=== PATIENT | female | born 1945 | race Caucasian/White ===

== ENCOUNTER 2019-02-09 08:13 | Day surgery (SDC) | payer MEDICARE, BC ==
[2019-02-08 16:51] LABS: BASOPHILS % (AUTO) 0.4 % (0-1); EOSINOPHILS # (AUTO) 0.1 X10'3 (0-0.9); EOSINOPHILS % (AUTO) 1.3 % (0-6); HEMATOCRIT 38.2 % (35.0-45.0); HEMOGLOBIN 12.7 g/dl (12.0-16.0); LYMPHOCYTES # (AUTO) 2.6 X10'3 (1.1-4.8); LYMPHOCYTES % (AUTO) 25.8 % (21-51); MEAN CORPUSCULAR HEMOGLOBIN 30.1 PG (27.0-31.0); MEAN CORPUSCULAR HGB CONC 33.1 g/dL (33.0-36.5); MEAN CORPUSCULAR VOLUME 90.8 FL (78-98); MEAN PLATELET VOLUME 9.2 FL (7.4-10.4); MONOCYTES # (AUTO) 0.7 X10'3 (0-0.9); MONOCYTES % (AUTO) 6.9 % (2-12); NEUTROPHILS # (AUTO) 6.7 X10'3 (1.8-7.7); NEUTROPHILS % (AUTO) 65.6 % (42-75); PLATELET COUNT 375 X10'3 (140-440); RED BLOOD COUNT 4.21 X10'6 (4.20-5.60); WHITE BLOOD COUNT 10.1 X10'3 (4.5-11.0)
[2019-02-08 17:05] LABS: ALBUMIN 3.1 G/DL (3.4-5.0); ANION GAP 11 (8-16); BLOOD UREA NITROGEN 22 MG/DL (7-18); CALCIUM 8.9 MG/DL (8.5-10.1); CHLORIDE 104 MMOL/L (99-107); CREATININE 1.22 MG/DL (0.40-0.90); GLUCOSE 294 MG/DL (70-104); POTASSIUM 4.6 MMOL/L (3.5-5.1); SODIUM 142 MMOL/L (135-145); TOTAL CARBON DIOXIDE 27.5 MMOL/L (24-32); eGFR 43 ML/MIN
[2019-02-08 18:02] LABS: TOTAL CELLS COUNTED 200
[2019-02-08 18:03] LABS: BASOPHILS % (MANUAL) 0 % (0-1); LYMPHOCYTES % (MANUAL) 28 % (21-51)
[2019-02-08 18:04] LABS: METAMYLEOCYTES% (MANUAL) 0 % (0-0)
[2019-02-08 18:05] LABS: ANISOCYTOSIS 1+; PLATELET ESTIMATE NORMAL
[2019-02-08 18:06] LABS: BURR CELLS 1+
[2019-02-08 18:09] LABS: ACANTHOCYTES 1+; SCHISTOCYTES FEW
[~2019-02-09] VITALS: Ht 157.5 cm; Wt 87.0 kg
[2019-02-09] VITALS (16 sets, daily range): BP systolic 124–142; BP diastolic 71–89
[2019-02-09] MEDS ORDERED: normal saline 1000ml 1,000 ML IV PRN (08:35)
[2019-02-09] MEDS ORDERED: LORazepam 0.5 MG tablet PO ONE (08:35)
[2019-02-09] MEDS ORDERED: atropine 0.1mg/ml 10ml syringe IV ONE (08:35)
[2019-02-09] MEDS ORDERED: amiodarone 150mg/dext, iso-os 100 ML IV ONE (08:35)
[2019-02-09] MEDS ORDERED: diphenhydrAMINE 25mg capsule PO ONE (08:35)
[2019-02-09] MEDS ORDERED: MIDAZolam 1mg/ml 10ml vial IV ONE (08:35)
[2019-02-09] MEDS ORDERED: morphine 10mg/ml inj. IV ONE (08:35)
[2019-02-09] MEDS ORDERED: FERR325T28 PO (09:04)
[2019-02-09] MEDS ORDERED: PANT-47 PO (09:04)
[2019-02-09] MEDS ORDERED: CALC-729 PO (09:04)
[2019-02-09] MEDS ORDERED: ATOR40TA PO (09:04)
[2019-02-09] MEDS ORDERED: CARV3.12 PO (09:04)
[2019-02-09] MEDS ORDERED: INSU100V9 SQ (09:04)
[2019-02-09] MEDS ORDERED: FENO145T38 PO (09:04)
[2019-02-09] MEDS ORDERED: LEVO100T78 PO (09:04)
[2019-02-09] MEDS ORDERED: FLEC100T2 PO (09:04)
[2019-02-09] MEDS ORDERED: APIX5TAB3 PO (09:04)
[2019-02-09] MEDS ORDERED: DIO160T PO (09:04)
[2019-02-09] MEDS ORDERED: CHOL10002 PO (09:04)
[2019-02-09] MEDS ORDERED: CYAN-51 PO (09:04)
[2019-02-09] MEDS ORDERED: MAGN400C PO (09:04)
[2019-02-09] MEDS ORDERED: DIPH25CA83 PO (09:04)
[2019-02-09] MEDS ORDERED: INSU100C10 SQ (09:04)
[2019-02-09] MEDS ORDERED: TETR15DR26 OP (09:05)
== END 2019-02-09 11:40 | disposition home or self-care (01) ==
LOC: SSTAY O 08:13
PROVIDERS: ATTEND Internal Medicine Cardiovascular Disease
DX: I48.19 Other persistent atrial fibrillation (principal); I10 Essential (primary) hypertension; E11.9 Type 2 diabetes mellitus without complications; R55 Syncope and collapse; Z79.899 Other long term (current) drug therapy
CPT/HCPCS: 36415; 80048; 82948; 85025; 85610; 92960; 93005; J0282; J0461; J2250; J2270; J7030; Q0163

== ENCOUNTER 2024-03-29 14:59 | Inpatient (IN) | payer MEDICARE, BC ==
[~2024-03-29] VITALS: Ht 162.6 cm; Wt 102.0 kg
[~2024-03-29 14:59] MED LIST: APIX5TAB3 PO; ATOR40TA PO; CALC-729 PO; CARV3.12 PO; CHOL10002 PO; CYAN-104 PO; DIO160T PO; DIPH25CA83 PO; FENO145T38 PO; FERR325T28 PO; FLEC100T2 PO; INSU100C10 SQ; INSU100V9 SQ; LEVO100T78 PO; MAGN400C PO; PANT-47 PO; TETR15DR26 OP
[2024-03-29 16:45] LABS: BASOPHILS % (AUTO) 0.2 % (0-1); EOSINOPHILS # (AUTO) 0.1 X10'3 (0-0.9); EOSINOPHILS % (AUTO) 0.7 % (0-6); HEMATOCRIT 31.5 % (35.0-45.0); HEMOGLOBIN 10.4 g/dl (12.0-16.0); LYMPHOCYTES # (AUTO) 1.5 X10'3 (1.1-4.8); LYMPHOCYTES % (AUTO) 14.9 % (21-51); MEAN CORPUSCULAR HEMOGLOBIN 29.1 PG (27.0-31.0); MEAN CORPUSCULAR VOLUME 88.1 FL (78-98); MEAN PLATELET VOLUME 8.3 FL (7.4-10.4); MONOCYTES # (AUTO) 0.8 X10'3 (0-0.9); MONOCYTES % (AUTO) 7.6 % (2-12); NEUTROPHILS # (AUTO) 7.7 X10'3 (1.8-7.7); NEUTROPHILS % (AUTO) 76.6 % (42-75); PLATELET COUNT 354 X10'3 (140-440); RED BLOOD COUNT 3.58 X10'6 (4.20-5.60); RED CELL DISTRIBUTION WIDTH 16.5 % (11.5-14.5); WHITE BLOOD COUNT 10.1 X10'3 (4.5-11.0)
[2024-03-29 16:59] LABS: ALBUMIN 1.7 G/DL (3.4-5.0); ANION GAP 7 (8-16); BLOOD UREA NITROGEN 26 MG/DL (7-18); BUN/CREATININE RATIO 22.4 (10.0-20.0); CALCIUM 9.4 MG/DL (8.5-10.1); CHLORIDE 100 MMOL/L (99-107); CREATININE 1.16 MG/DL (0.40-0.90); GLUCOSE 310 MG/DL (70-104); LIPASE 26 U/L (16-77); POTASSIUM 5.2 MMOL/L (3.5-5.1); SODIUM 135 MMOL/L (135-145); TOTAL CARBON DIOXIDE 28.1 MMOL/L (24-32); eCRCL 33 ML/MIN; eGFR 45 ML/MIN
[2024-03-29] MEDS ORDERED: magnesium hydroxide 30ml (MOM) UD suspension PO PRN (21:30)
[2024-03-29] MEDS ORDERED: potassium Cl 20 mEq SR tablet PO PRN ×2 (21:30)
[2024-03-29] MEDS ORDERED: ondansetron/PF 4mg/2ml inj IV PRN (21:30)
[2024-03-29] MEDS ORDERED: acetaminophen 325mg tablet PO PRN (21:30)
[2024-03-29] MEDS ORDERED: magnesium Cl slow-release 64mg tablet PO PRN (21:30)
[2024-03-29] MEDS ORDERED: magnesium sulf-water 2g/50mL 50 ML IV PRN (21:30)
[2024-03-29] MEDS ORDERED: potassium Cl 40MEQ/1/2NS 520ml 520 ML IV PRN (21:30)
[2024-03-29] MEDS ORDERED: mag hydrox/Alum hydrox/simeth 30ml oral suspension PO PRN (21:30)
[2024-03-29] MEDS ORDERED: magnesium sulf-water 4G/100mL 100 ML IV PRN (21:30)
[2024-03-29] MEDS ORDERED: morphine 2 MG/ML inj. syringe IV PRN ×2 (21:30)
[2024-03-29] MEDS: piperacillin/tazo 3.375gm/50ml 50 ML IV ONE (21:53)
[2024-03-29 22:03] LABS: BILIRUBIN,URINE NEGATIVE (Neg); CLARITY,URINE CLOUDY (Clear); COLOR,URINE YELLOW (Yellow); GLUCOSE, URINE NEGATIVE (Neg); KETONES,URINE NEGATIVE (Neg); LEUKOCYTE ESTERASE ,URINE LARGE (Neg); NITRITES, URINE NEGATIVE (Neg); OCCULT BLOOD,URINE TRACE-INTACT (Neg); PROTEIN,URINE 100 mg/dl (Neg); UROBILINOGEN,URINE 0.2 E.U/dL (0.2-1.0)
[2024-03-29] MEDS: CefTRIAXone 2gm/D5W 50ml BAG 50 ML IV ONE (22:08)
[2024-03-29 22:09] LABS: UA COLLECTION TYPE CLN CATCH MIDSTREAM
[2024-03-29 22:10] LABS: BACTERIA,URINE 4+ /HPF (Neg); SQUAMOUS EPITHELIAL CELL,UR FEW /LPF (FEW)
[2024-03-29 22:11] LABS: RBC,URINE 0-2 /HPF (0-2); WBC,URINE TNTC /HPF (0-4)
[2024-03-29] MEDS ORDERED: dextrose 50%-water 50ml dispensing syringe IV PRN ×2 (22:20)
[2024-03-29] MEDS ORDERED: DEXTROSE 15 GM of carb/4 tabs (each vial/BOTTLE has 4 tablets) PO PRN ×2 (22:20)
[2024-03-29] MEDS ORDERED: glucagon, human recombinant 1mg kit SUBCUT PRN (22:20)
[2024-03-29 22:46] LABS: HEMOGLOBIN A1C 9.5 % (4.5-6.2)
[2024-03-30] VITALS (12 sets, daily range): BP systolic 122–146; BP diastolic 50–68; PULSE 55–77; RESP 14–73; TEMP 97.1–98.5; O2SAT 92–98
[2024-03-30] MEDS: VANCOMYCIN/H2O 1.5g/300mL PB 300 ML IV ONE (04:24)
[2024-03-30 04:33] LABS: BASOPHILS % (AUTO) 0.3 % (0-1); EOSINOPHILS # (AUTO) 0.2 X10'3 (0-0.9); EOSINOPHILS % (AUTO) 1.7 % (0-6); HEMATOCRIT 29.9 % (35.0-45.0); HEMOGLOBIN 9.9 g/dl (12.0-16.0); LYMPHOCYTES # (AUTO) 1.5 X10'3 (1.1-4.8); LYMPHOCYTES % (AUTO) 16.1 % (21-51); MEAN CORPUSCULAR HGB CONC 33.1 g/dL (33.0-36.5); MEAN CORPUSCULAR VOLUME 87.7 FL (78-98); MEAN PLATELET VOLUME 8.1 FL (7.4-10.4); MONOCYTES # (AUTO) 0.7 X10'3 (0-0.9); MONOCYTES % (AUTO) 7.2 % (2-12); NEUTROPHILS % (AUTO) 74.7 % (42-75); PLATELET COUNT 338 X10'3 (140-440); RED BLOOD COUNT 3.41 X10'6 (4.20-5.60); RED CELL DISTRIBUTION WIDTH 16.3 % (11.5-14.5); WHITE BLOOD COUNT 9.4 X10'3 (4.5-11.0)
[2024-03-30 05:13] LABS: ALANINE AMINOTRANSFERASE 27 U/L (12-78); ALBUMIN 1.6 G/DL (3.4-5.0); ALBUMIN/GLOBULIN RATIO 0.3 (1.1-1.5); ALKALINE PHOSPHATASE 145 IU/L (46-116); ANION GAP 3 (8-16); ASPARTATE AMINO TRANSFERASE 18 U/L (10-37); BILIRUBIN,TOTAL 0.3 MG/DL (0.1-1.0); BLOOD UREA NITROGEN 20 MG/DL (7-18); BUN/CREATININE RATIO 21.3 (10.0-20.0); CALCIUM 8.7 MG/DL (8.5-10.1); CHLORIDE 104 MMOL/L (99-107); CREATININE 0.94 MG/DL (0.40-0.90); GLUCOSE 171 MG/DL (70-104); MAGNESIUM 1.8 MG/DL (1.5-2.4); POTASSIUM 4.5 MMOL/L (3.5-5.1); SODIUM 137 MMOL/L (135-145); TOTAL CARBON DIOXIDE 29.6 MMOL/L (24-32); TOTAL PROTEIN 6.4 G/DL (6.4-8.2); eCRCL 41 ML/MIN; eGFR 57 ML/MIN
[2024-03-30] MEDS: INSULIN LISPRO 100 UNIT/ML INSULN.PEN MULTI-DOSE SQ SCH ×2 (07:00→09:00)
[2024-03-30] MEDS: K and/or MAG REPLACEMENT MC SCH (08:00)
[2024-03-30] MEDS: piperacillin/tazo 4.5gm/100ml 100 ML IV SCH (09:02)
[2024-03-30] MEDS: docusate sod 100mg capsule PO SCH (09:02)
[2024-03-30] MEDS: levoTHYROXINE 100mcg tablet PO SCH (13:24)
[2024-03-30] MEDS ORDERED: IPRA3AMP9 IH (15:59)
[2024-03-30] MEDS ORDERED: IBAN150T21 PO (16:00)
[2024-03-30] MEDS ORDERED: SODI1TAB2 PO (16:01)
[2024-03-30] MEDS ORDERED: FURO-149 PO (16:03)
[2024-03-30] MEDS ORDERED: CARB15DR2 RIGHTEYE (16:15)
[2024-03-30] MEDS ORDERED: HYDR50TA46 PO (16:16)
[2024-03-30] MEDS ORDERED: BETA1TAB20 PO (16:17)
[2024-03-30] MEDS: VANCOMYCIN 1GM 200ML H20 (PEG) 200 ML IV SCH (16:28)
[2024-03-30] MEDS ORDERED: DICL20GE (16:39)
[2024-03-30] MEDS ORDERED: MAG-11 (16:40)
[2024-03-30] MEDS: CefTRIAXone 2gm/D5W 50ml BAG 50 ML IV SCH (19:59)
[2024-03-30] MEDS: enoxaparin 40mg/0.4ml syringe SQ SCH (20:00)
[2024-03-30] MEDS: nystatin 15 GM powder TP SCH (22:16)
[2024-03-30] MEDS: insulin glargine (Lantus) pen - multi-dose SQ SCH (23:19)
[2024-03-31] VITALS (20 sets, daily range): BP systolic 106–148; BP diastolic 41–64; PULSE 52–77; RESP 12–19; TEMP 97.2–98.5; O2SAT 92–99
[2024-03-31 04:43] LABS: BASOPHILS % (AUTO) 0.4 % (0-1); EOSINOPHILS # (AUTO) 0.2 X10'3 (0-0.9); EOSINOPHILS % (AUTO) 2.4 % (0-6); HEMATOCRIT 29.2 % (35.0-45.0); HEMOGLOBIN 9.7 g/dl (12.0-16.0); LYMPHOCYTES # (AUTO) 1.8 X10'3 (1.1-4.8); LYMPHOCYTES % (AUTO) 26.4 % (21-51); MEAN CORPUSCULAR HGB CONC 33.1 g/dL (33.0-36.5); MEAN CORPUSCULAR VOLUME 87.5 FL (78-98); MEAN PLATELET VOLUME 8.2 FL (7.4-10.4); MONOCYTES # (AUTO) 0.6 X10'3 (0-0.9); MONOCYTES % (AUTO) 8.1 % (2-12); NEUTROPHILS # (AUTO) 4.3 X10'3 (1.8-7.7); NEUTROPHILS % (AUTO) 62.7 % (42-75); PLATELET COUNT 360 X10'3 (140-440); RED BLOOD COUNT 3.34 X10'6 (4.20-5.60); RED CELL DISTRIBUTION WIDTH 16.2 % (11.5-14.5); WHITE BLOOD COUNT 6.8 X10'3 (4.5-11.0)
[2024-03-31 05:13] LABS: ALANINE AMINOTRANSFERASE 30 U/L (12-78); ALBUMIN 1.5 G/DL (3.4-5.0); ALBUMIN/GLOBULIN RATIO 0.3 (1.1-1.5); ALKALINE PHOSPHATASE 147 IU/L (46-116); ANION GAP 3 (8-16); ASPARTATE AMINO TRANSFERASE 19 U/L (10-37); BILIRUBIN,TOTAL 0.1 MG/DL (0.1-1.0); BLOOD UREA NITROGEN 22 MG/DL (7-18); BUN/CREATININE RATIO 23.4 (10.0-20.0); CALCIUM 8.6 MG/DL (8.5-10.1); CHLORIDE 104 MMOL/L (99-107); CREATININE 0.94 MG/DL (0.40-0.90); FREE T4 (FREE THYROXINE) 0.92 NG/DL (0.73-1.40); GLUCOSE 219 MG/DL (70-104); MAGNESIUM 1.7 MG/DL (1.5-2.4); POTASSIUM 4.5 MMOL/L (3.5-5.1); SODIUM 137 MMOL/L (135-145); THYROID STIMULATING HORMONE 14.39 ulU/ml (0.34-4.50); TOTAL CARBON DIOXIDE 30.1 MMOL/L (24-32); eCRCL 41 ML/MIN; eGFR 57 ML/MIN
[2024-03-31] MEDS ORDERED: iohexol 300mg/ml 100ml inj. ONE (10:06)
[2024-03-31] MEDS: VANCOMYCIN LEVEL IV ONE (15:39)
[2024-03-31] MEDS ORDERED: morphine 2 MG/ML inj. syringe IV PRN (16:00)
[2024-03-31] MEDS ORDERED: morphine 4 MG/ML inj SYRINge IV PRN (16:00)
[2024-03-31] MEDS ORDERED: hydrALAZINE 20mg/ml inj. IV PRN (16:00)
[2024-03-31] MEDS ORDERED: labetalol 20mg/4ml (5mg/ml) syringe IV PRN (16:00)
[2024-03-31] MEDS ORDERED: ondansetron/PF 4mg/2ml inj IV PRN (16:00)
[2024-03-31] MEDS ORDERED: fentaNYL/PF 50MCG/1 ML 2ML syringe IV PRN ×2 (16:00)
[2024-03-31] MEDS ORDERED: sevoflurane 250ml liquid IH ONE (18:40)
[2024-03-31] MEDS ORDERED: propofol inj 20 ML IV ONE (18:52)
[2024-03-31] MEDS ORDERED: ondansetron/PF 4mg/2ml inj ONE (18:53)
[2024-03-31] MEDS: ringers solution, lacted 1,000 ML IV SCH (19:41)
[2024-03-31] MEDS ORDERED: insulin glargine (Lantus) pen - multi-dose SQ SCH (21:00)
[2024-03-31] MEDS: insulin glargine (Lantus) pen - multi-dose SQ SCH (22:29)
[2024-04-01] VITALS (9 sets, daily range): BP systolic 124–172; BP diastolic 53–70; PULSE 62–84; RESP 18; TEMP 97.5–98.7; O2SAT 91–96
[2024-04-01 04:33] LABS: BASOPHILS % (AUTO) 0.3 % (0-1); EOSINOPHILS # (AUTO) 0.2 X10'3 (0-0.9); EOSINOPHILS % (AUTO) 2.1 % (0-6); HEMATOCRIT 30.9 % (35.0-45.0); HEMOGLOBIN 10.3 g/dl (12.0-16.0); LYMPHOCYTES # (AUTO) 1.4 X10'3 (1.1-4.8); LYMPHOCYTES % (AUTO) 16.7 % (21-51); MEAN CORPUSCULAR HEMOGLOBIN 29.2 PG (27.0-31.0); MEAN CORPUSCULAR HGB CONC 33.2 g/dL (33.0-36.5); MEAN CORPUSCULAR VOLUME 87.8 FL (78-98); MONOCYTES # (AUTO) 0.6 X10'3 (0-0.9); MONOCYTES % (AUTO) 6.5 % (2-12); NEUTROPHILS # (AUTO) 6.3 X10'3 (1.8-7.7); NEUTROPHILS % (AUTO) 74.4 % (42-75); PLATELET COUNT 404 X10'3 (140-440); RED BLOOD COUNT 3.52 X10'6 (4.20-5.60); RED CELL DISTRIBUTION WIDTH 16.4 % (11.5-14.5); WHITE BLOOD COUNT 8.5 X10'3 (4.5-11.0)
[2024-04-01 04:51] LABS: ALANINE AMINOTRANSFERASE 22 U/L (12-78); ALBUMIN 1.6 G/DL (3.4-5.0); ALBUMIN/GLOBULIN RATIO 0.4 (1.1-1.5); ALKALINE PHOSPHATASE 135 IU/L (46-116); ANION GAP 6 (8-16); ASPARTATE AMINO TRANSFERASE 13 U/L (10-37); BILIRUBIN,TOTAL 0.2 MG/DL (0.1-1.0); BLOOD UREA NITROGEN 15 MG/DL (7-18); BUN/CREATININE RATIO 16.9 (10.0-20.0); CALCIUM 8.3 MG/DL (8.5-10.1); CHLORIDE 106 MMOL/L (99-107); CREATININE 0.89 MG/DL (0.40-0.90); GLUCOSE 179 MG/DL (70-104); MAGNESIUM 1.7 MG/DL (1.5-2.4); POTASSIUM 4.3 MMOL/L (3.5-5.1); SODIUM 141 MMOL/L (135-145); TOTAL PROTEIN 6.1 G/DL (6.4-8.2); eCRCL 44 ML/MIN; eGFR 61 ML/MIN
[2024-04-01] MEDS: levoTHYROXINE 112mcg tablet PO SCH (07:54)
[2024-04-01] MEDS: bisacodyl 10mg suppository rectal RC STA (10:43)
[2024-04-01] MEDS ORDERED: hydrALAZINE 20mg/ml inj. IV SCH (12:12)
[2024-04-01] MEDS ORDERED: hydrALAZINE 20mg/ml inj. IV PRN (13:40)
[2024-04-01] MEDS ORDERED: CEFD300C3 PO (14:16)
[2024-04-01] MEDS ORDERED: LEVO112T5 PO (14:16)
[2024-04-01] MEDS ORDERED: LINE600T14 PO (14:16)
[2024-04-01] MEDS ORDERED: LANTUS SQ (14:16)
[2024-04-01] MEDS ORDERED: DOCU100C40 PO (14:24)
[2024-04-01] MEDS: ampicill/sulbac 1.5gm/NS 100ml 100 ML IV SCH (21:13)
[2024-04-02] VITALS (7 sets, daily range): BP systolic 142–156; BP diastolic 58–68; PULSE 62–81; RESP 13–18; TEMP 97.9–98.5; O2SAT 92–99
[2024-04-02 06:31] LABS: BASOPHILS % (AUTO) 0.4 % (0-1); EOSINOPHILS # (AUTO) 0.2 X10'3 (0-0.9); EOSINOPHILS % (AUTO) 2.2 % (0-6); HEMOGLOBIN 9.7 g/dl (12.0-16.0); LYMPHOCYTES # (AUTO) 1.9 X10'3 (1.1-4.8); LYMPHOCYTES % (AUTO) 24.1 % (21-51); MEAN CORPUSCULAR HEMOGLOBIN 28.5 PG (27.0-31.0); MEAN CORPUSCULAR HGB CONC 32.2 g/dL (33.0-36.5); MEAN CORPUSCULAR VOLUME 88.4 FL (78-98); MEAN PLATELET VOLUME 7.8 FL (7.4-10.4); MONOCYTES # (AUTO) 0.6 X10'3 (0-0.9); MONOCYTES % (AUTO) 7.6 % (2-12); NEUTROPHILS # (AUTO) 5.3 X10'3 (1.8-7.7); NEUTROPHILS % (AUTO) 65.7 % (42-75); PLATELET COUNT 421 X10'3 (140-440); RED CELL DISTRIBUTION WIDTH 16.3 % (11.5-14.5)
[2024-04-02 06:52] LABS: ALANINE AMINOTRANSFERASE 21 U/L (12-78); ALBUMIN 1.6 G/DL (3.4-5.0); ALBUMIN/GLOBULIN RATIO 0.3 (1.1-1.5); ALKALINE PHOSPHATASE 143 IU/L (46-116); ANION GAP 7 (8-16); ASPARTATE AMINO TRANSFERASE 13 U/L (10-37); BILIRUBIN,TOTAL 0.2 MG/DL (0.1-1.0); BLOOD UREA NITROGEN 19 MG/DL (7-18); BUN/CREATININE RATIO 22.4 (10.0-20.0); CALCIUM 8.8 MG/DL (8.5-10.1); CHLORIDE 105 MMOL/L (99-107); CREATININE 0.85 MG/DL (0.40-0.90); GLUCOSE 290 MG/DL (70-104); MAGNESIUM 1.9 MG/DL (1.5-2.4); POTASSIUM 4.2 MMOL/L (3.5-5.1); SODIUM 138 MMOL/L (135-145); TOTAL CARBON DIOXIDE 26.5 MMOL/L (24-32); TOTAL PROTEIN 6.2 G/DL (6.4-8.2); eCRCL 46 ML/MIN; eGFR 64 ML/MIN
[2024-04-02 07:20] LABS: TOTAL CELLS COUNTED 100
[2024-04-02 07:21] LABS: ANISOCYTOSIS 1+; PLATELET ESTIMATE NORMAL
[2024-04-02] MEDS: insulin glargine (Lantus) pen - multi-dose SQ ONE (08:38)
[2024-04-02] MEDS: NUT.TX.GLUC.INTOLER,LAC-FR,SOY (GLUCERNA) 237 ML PO SCH (08:43)
[2024-04-02] MEDS: insulin glargine (Lantus) pen - multi-dose SQ SCH (21:00)
[2024-04-03 05:00] VITALS: BP 157/69; PULSE 66; RESP 16; TEMP 98.9; O2SAT 98
[2024-04-03 05:49] LABS: BASOPHILS # (AUTO) 0.1 X10'3 (0-0.2); BASOPHILS % (AUTO) 1.1 % (0-1); EOSINOPHILS # (AUTO) 0.2 X10'3 (0-0.9); EOSINOPHILS % (AUTO) 2.3 % (0-6); HEMOGLOBIN 10.1 g/dl (12.0-16.0); LYMPHOCYTES # (AUTO) 2.2 X10'3 (1.1-4.8); LYMPHOCYTES % (AUTO) 27.4 % (21-51); MEAN CORPUSCULAR HEMOGLOBIN 28.9 PG (27.0-31.0); MEAN CORPUSCULAR HGB CONC 32.6 g/dL (33.0-36.5); MEAN CORPUSCULAR VOLUME 88.6 FL (78-98); MONOCYTES # (AUTO) 0.5 X10'3 (0-0.9); MONOCYTES % (AUTO) 6.4 % (2-12); NEUTROPHILS % (AUTO) 62.8 % (42-75); PLATELET COUNT 405 X10'3 (140-440); RED BLOOD COUNT 3.49 X10'6 (4.20-5.60); RED CELL DISTRIBUTION WIDTH 16.4 % (11.5-14.5); WHITE BLOOD COUNT 7.9 X10'3 (4.5-11.0)
[2024-04-03 06:11] LABS: ALANINE AMINOTRANSFERASE 19 U/L (12-78); ALBUMIN 1.6 G/DL (3.4-5.0); ALBUMIN/GLOBULIN RATIO 0.4 (1.1-1.5); ALKALINE PHOSPHATASE 134 IU/L (46-116); ANION GAP 5 (8-16); ASPARTATE AMINO TRANSFERASE 13 U/L (10-37); BILIRUBIN,TOTAL 0.2 MG/DL (0.1-1.0); BLOOD UREA NITROGEN 17 MG/DL (7-18); BUN/CREATININE RATIO 18.3 (10.0-20.0); CALCIUM 8.6 MG/DL (8.5-10.1); CHLORIDE 106 MMOL/L (99-107); CREATININE 0.93 MG/DL (0.40-0.90); GLUCOSE 277 MG/DL (70-104); POTASSIUM 4.4 MMOL/L (3.5-5.1); SODIUM 140 MMOL/L (135-145); TOTAL CARBON DIOXIDE 29.2 MMOL/L (24-32); TOTAL PROTEIN 6.1 G/DL (6.4-8.2); eCRCL 42 ML/MIN; eGFR 58 ML/MIN
[2024-04-03 07:00] LABS: ANISOCYTOSIS 1+; PLATELET ESTIMATE NORMAL; TOTAL CELLS COUNTED 100
[2024-04-03 10:00] VITALS: BP 144/60; PULSE 74; RESP 18; TEMP 97.7; O2SAT 95
[2024-04-03 11:47] VITALS: RESP 18
[2024-04-03] MEDS ORDERED: heparin, porcine 5000 units/ml vial SQ SCH (20:00)
[2024-04-03] MEDS ORDERED: insulin glargine (Lantus) pen - multi-dose SQ SCH (21:00)
== END 2024-04-03 15:40 | DRG 856 ==
LOC: ER 15:00 → ED HOLD 21:30 → SUR 3N 03-30 00:10
PROVIDERS: ADMIT Surgery; ATTEND Nurse Practitioner Family
PROC: 5A09357 Assistance with Respiratory Ventilation, Less than 24 Consecutive Hours, Continuous Positive Airway Pressure (ICD-10-PCS; 2024-03-31)
PROC: BW211ZZ Computerized Tomography (CT Scan) of Abdomen and Pelvis using Low Osmolar Contrast (ICD-10-PCS; 2024-03-31)
PROC: 2W13X6Z Compression of Abdominal Wall using Pressure Dressing (ICD-10-PCS; 2024-03-31)
PROC: 0W9F0ZZ Drainage of Abdominal Wall, Open Approach (ICD-10-PCS; principal; 2024-03-31 18:40)
PROC: 5A09357 Assistance with Respiratory Ventilation, Less than 24 Consecutive Hours, Continuous Positive Airway Pressure (ICD-10-PCS; 2024-04-01)
PROC: 5A09357 Assistance with Respiratory Ventilation, Less than 24 Consecutive Hours, Continuous Positive Airway Pressure (ICD-10-PCS; 2024-04-02)
PROC: 5A09357 Assistance with Respiratory Ventilation, Less than 24 Consecutive Hours, Continuous Positive Airway Pressure (ICD-10-PCS; 2024-04-03)
DX: T81.49XA Infection following a procedure, other surgical site, initial encounter (principal); K65.1 Peritoneal abscess; N39.0 Urinary tract infection, site not specified; E03.9 Hypothyroidism, unspecified; I10 Essential (primary) hypertension; Z66 Do not resuscitate; Y83.8 Other surgical procedures as the cause of abnormal reaction of the patient, or of later complication, without mention of misadventure at the time of the procedure; E11.65 Type 2 diabetes mellitus with hyperglycemia; G47.33 Obstructive sleep apnea (adult) (pediatric); Z79.01 Long term (current) use of anticoagulants; Z79.4 Long term (current) use of insulin; Z79.899 Other long term (current) drug therapy; Z87.440 Personal history of urinary (tract) infections; Z90.49 Acquired absence of other specified parts of digestive tract; Z88.2 Allergy status to sulfonamides; Z91.040 Latex allergy status; Z88.8 Allergy status to other drugs, medicaments and biological substances; Y92.89 Other specified places as the place of occurrence of the external cause; Z83.3 Family history of diabetes mellitus; Z80.1 Family history of malignant neoplasm of trachea, bronchus and lung
CPT/HCPCS: 36415; 71045; 74177; 80048; 80053; 80202; 81001; 82948; 83036; 83605; 83690; 83735; 84145; 84439; 84443; 85007; 85025; 87040; 87070; 87077; 87081; 87088; 87186; 93005; 94760; 97110; 97162; 97530; 99285; A4615; A4618; A6212; A6213; A6253; A6258; A6266; A6449; A6550; A7000; G0378; J0295; J0696; J1650; J1815; J2003; J2405; J2543; J2704; J3372; J7030; J7040; J7050; J7120; Q9967